=== PATIENT | female | born 1930 | race Caucasian/White ===

== ENCOUNTER 2017-06-08 11:58 | Emergency (ER) | payer MEDICARE, BC ==
--- NOTE | 2017-06-08 12:29 | ER Document Report ---
ED General - General Mode of Arrival: Ambulatory Information source: Patient, Relative - daughter TRAVEL OUTSIDE OF THE [place] IN LAST 30 DAYS: No - HPI Onset: Other - Refer to HPI Notes Associated symptoms: Other - cough, fatigue, sneezing, scratchy throat, urinary frequency <ROGERIO KAY - Last Filed: 06/08/17 13:48> <JUNIOR ABBASI - Last Filed: 06/08/17 15:01> - General Chief Complaint: Cough Stated Complaint: COUGH, CONFUSION Time Seen by Provider: 06/08/17 12:20 Notes: Patient is an 86-year-old female presenting to the emergency department with complaints of cough, fatigue and scratchy throat. Patient has a history of dementia her daughter is present to give most of the HPI and patient's history. Patient has had a cough for approximately 2-3 days along with some sneezing and scratchy throat. Patient's cough became worse last night. Patient and daughter boty deny any known fever. Patient's daughter also states the patient has had an increased amount of confusion during all parts of the day. Patient denies any dysuria or urinary symptoms however the daughter states that when they are going somewhere, the patient will use the bathroom at home and then have frequency to go again as soon as they arrive to their destination. Patient also has a history of hypertension hyperlipidemia and hypothyroidism. Patient is taking Exelon for her dementia. Patient has no known allergies. Patient's primary care physician is Dr. Hamm, in [place]. (ROGERIO KAY) - Related Data Allergies/Adverse Reactions: No Known Allergies Allergy (Unverified 11/20/13 14:09) Past Medical History - General Information source: Patient, Relative - daughter - Social History Smoking Status: Unknown if Ever Smoked Family History: None - Past Medical History Cardiac Medical History: Reports: Hx Congestive Heart Failure, Hx Hypercholesterolemia, Hx Hypertension Pulmonary Medical History: Reports: Hx Bronchitis, Hx Pneumonia Endocrine Medical History: Reports: Hx Hypothyroidism Renal/ Medical History: Denies: Hx Peritoneal Dialysis Past Surgical History: Reports: Hx Tubal Ligation - Immunizations Hx Diphtheria, Pertussis, Tetanus Vaccination: Yes - UTD <ROGERIO KAY - Last Filed: 06/08/17 13:48> Review of Systems - Review of Systems Constitutional: See HPI, Malaise. denies: Fever EENT: See HPI, Nose congestion, Nose discharge, Throat pain Cardiovascular: No symptoms reported Respiratory: See HPI, Cough Gastrointestinal: No symptoms reported Genitourinary: See HPI, Frequency Female Genitourinary: No symptoms reported Musculoskeletal: No symptoms reported Skin: No symptoms reported Hematologic/Lymphatic: No symptoms reported Neurological/Psychological: See HPI, Confusion, Dementia -: Yes All other systems reviewed and negative <ROGERIO KAY - Last Filed: 06/08/17 13:48> Physical Exam - Vital signs Interpretation: Hypertensive <ROGERIO KAY - Last Filed: 06/08/17 13:48> <JUNIOR ABBASI - Last Filed: 06/08/17 15:01> - Vital signs Vitals: Temp Pulse Resp BP Pulse Ox 97.7 F 79 20 161/56 H 98 06/08/17 12:10 06/08/17 12:10 06/08/17 12:10 06/08/17 12:10 06/08/17 12:10 - Notes Notes: GENERAL: Alert, interacts well. No acute distress. HEAD: Normocephalic, atraumatic. EYES: Appear normal. Pupils equal, round, and reactive to light. ENT: Moist mucus membranes, tongue midline, mild erythema to the oropharynx, no swelling to the oropharynx. Nares patent. Cerumen impaction bilaterally. NECK: Full range of motion. Supple. Trachea midline. LUNGS: Nonproductive cough. Rhonchi bilaterally but worse on the left side. No respiratory distress. HEART: Regular rate and rhythm. No murmurs, gallops, or rubs. ABDOMEN: Soft, non-tender. Non-distended. Normal bowel sounds. EXTREMITIES: Moves all 4 extremities spontaneously. Normal strength. No edema. NEUROLOGICAL: Normal speech. No focal neurological deficits. GSC 15. PSYCH: Normal affect, normal mood. SKIN: Warm, dry, normal turgor. No rashes or lesions noted. (ROGERIO KAY) Course - Laboratory Result Diagrams: 06/08/17 13:00 06/08/17 13:00 <ROGERIO KAY - Last Filed: 06/08/17 13:48> - Laboratory Result Diagrams: 06/08/17 13:00 06/08/17 13:00 - Diagnostic Test Radiology reviewed: Image reviewed - There is some increased markings in the right lower lobe suggestive of early infiltrate - EKG Interpretation by [place] EKG shows normal: Sinus rhythm, [place], Intervals, QRS Complexes, ST-T Waves Rate: Normal - 75 Rhythm: NSR <JUNIOR ABBASI - Last Filed: 06/08/17 15:01> - Vital Signs Vital signs: Temp Pulse Resp BP Pulse Ox 97.7 F 79 20 161/56 H 98 06/08/17 12:10 06/08/17 12:10 06/08/17 12:10 06/08/17 12:10 06/08/17 12:10 - Laboratory Laboratory results interpreted by me: 06/08/17 06/08/17 13:00 13:00 Sodium 133.3 L Urine Blood SMALL H Ur Leukocyte Esterase MODERATE H Discharge <ROGERIO KAY - Last Filed: 06/08/17 13:48> <JUNIOR ABBASI - Last Filed: 06/08/17 15:01> - Discharge Clinical Impression: Bronchitis Urinary tract infection Qualifiers: Urinary tract infection type: site unspecified Hematuria presence: without hematuria Qualified Code(s): N39.0 - Urinary tract infection, site not specified Condition: Stable Disposition: HOME, SELF-CARE Additional Instructions: Bronchitis: You have acute bronchitis. This disease is an infection or inflammation of the air passageways in your lungs. Symptoms usually include cough, low grade fever, shortness of breath, and wheezing. The cough usually persists for a couple of weeks. Most cases of bronchitis get better without antibiotics. We prescribe antibiotics when we believe bacteria are damaging your airways, or if there's high risk the bronchitis will worsen into pneumonia. Increase your fluid intake. A cool mist humidifier may make your lungs more comfortable. An expectorant (cough medicine that loosens phlegm) can help. Call the doctor if you develop increasing fever, shortness of breath, chest pain, bloody sputum, or otherwise worsen. If you have not improved at all after several days, contact the physician. Urinary Tract Infection: Your evaluation suggests that you MAY have a urinary tract infection. This is due to germs growing in the bladder. This is a common problem. This infection usually responds quickly to antibiotics. Your antibiotic should be taken exactly as prescribed. Drink plenty of fluids -- three to four quarts a day. Certain urine infections require a culture. If the doctor obtained a culture, the results will be back in two days. You should call to see if a change in treatment is needed. A repeat urinalysis after you finish treatment is often recommended. The physician will let you know if further testing is required. Call the doctor if you develop fever, chills, flank pain, inability to urinate, or blood in the urine. START THE ANTIBIOTIC PRESCRIBED TOMORROW. DRINK PLENTY OF FLUIDS. TRY ROBITUSSIN-DM FOR COUGH SUPPRESSION. FOLLOW UP WITH YOUR DOCTOR IF NOT IMPROVING. RETURN TO THE EMERGENCY ROOM IF ANY NEW OR WORSENING SYMPTOMS. Prescriptions: Levofloxacin [Levaquin 750 mg Tablet] 750 mg PO DAILY #4 tablet Referrals: CAMDEN HAMM MD [Primary Care Provider] - Follow up as needed Scribe Attestation: 06/08/17 14:59 I personally performed the services described in the documentation, reviewed and edited the documentation which was dictated to the scribe in my presence, and it accurately records my words and actions. (JUNIOR ABBASI) Scribe Documentation - Scribe Written by Livan:: Livan Segura, 06/08/2017 12:43 acting as scribe for :: Santo <ROGERIO KAY - Last Filed: 06/08/17 13:48>
[2017-06-08 13:19] LABS: VENOUS BLOOD BASE EXCESS 2.3 mmol/L; VENOUS BLOOD HCO3 28.7 mmol/L (20-32); VENOUS BLOOD PCO2 51.9 mmHg (35-63); VENOUS BLOOD PH 7.36 (7.30-7.42)
[2017-06-08 13:23] LABS: ABSOLUTE LYMPHOCYTES (AUTO) 2.4 10^3/uL (0.5-4.7); ABSOLUTE MONOCYTES (AUTO) 0.9 10^3/uL (0.1-1.4); BASOPHILS % (AUTO) 0.3 % (0-2); EOSINOPHILS % (AUTO) 0.3 % (0-6); HEMATOCRIT 40.4 % (36.0-47.0); HEMOGLOBIN 13.3 g/dL (12.0-15.5); HGB HCT DIFFERENCE -0.5; LYMPHOCYTES % (AUTO) 25.4 % (13-45); MEAN CORPUSCULAR HEMOGLOBIN 29.8 pg (27.0-33.4); MEAN CORPUSCULAR HGB CONC 32.8 g/dL (32.0-36.0); MEAN CORPUSCULAR VOLUME 91 fl (80-97); MONOCYTES % (AUTO) 9.9 % (3-13); PROTHROMBIN TIME 12.9 SEC (11.4-15.4); RED BLOOD COUNT 4.45 10^6/uL (3.72-5.28); RED CELL DISTRIBUTION WIDTH 13.8 % (11.5-14.0); SEGMENTED NEUTROPHILS % (AUTO) 64.1 % (42-78); WHITE BLOOD COUNT 9.3 10^3/uL (4.0-10.5)
[2017-06-08 13:30] LABS: APPEARANCE,URINE SLIGHTLY-CLOUDY; BILIRUBIN,URINE NEGATIVE (NEGATIVE); GLUCOSE, URINE NEGATIVE (NEGATIVE); KETONES,URINE NEGATIVE (NEGATIVE); LEUKOCYTE ESTERASE,URINE MODERATE (NEGATIVE); NITRITE,URINE NEGATIVE (NEGATIVE); PROTEIN,URINE NEGATIVE (NEGATIVE); URINE SPECIFIC GRAVITY 1.011; UROBILINOGEN,URINE NEGATIVE mg/dL (<2.0)
[2017-06-08 13:39] LABS: ALANINE AMINOTRANSFERASE 31 U/L (9-52); ALBUMIN 3.7 g/dL (3.5-5.0); ALKALINE PHOSPHATASE 90 U/L (38-126); ANION GAP 9 (5-19); ASPARTATE AMINO TRANSFERASE 30 U/L (14-36); BILIRUBIN,DIRECT 0.1 mg/dL (0.0-0.4); BILIRUBIN,TOTAL 0.6 mg/dL (0.2-1.3); BLOOD UREA NITROGEN 17 mg/dL (7-20); CALCIUM 8.9 mg/dL (8.4-10.2); CARBON DIOXIDE 25 mmol/L (22-30); CHLORIDE 99 mmol/L (98-107); CREATININE RESULT 0.71 mg/dL (0.52-1.25); GLUCOSE 93 mg/dL (75-110); POTASSIUM 4.4 mmol/L (3.6-5.0); SODIUM 133.3 mmol/L (137-145); TOTAL PROTEIN 7.2 g/dL (6.3-8.2)
[2017-06-08] MEDS ORDERED: LEVOFLOXACIN 750 MG TABLET PO ONE (14:59)
--- NOTE | 2017-06-08 15:27 | RADIOLOGY REPORT (SQ) ---
EXAM DESCRIPTION: CHEST PA/LAT COMPLETED DATE/TIME: 06/08/2017 2:52 pm REASON FOR STUDY: cough, confusion COMPARISON: October 2016 EXAM PARAMETERS: NUMBER OF VIEWS: two views TECHNIQUE: Digital Frontal and Lateral radiographic views of the chest acquired. RADIATION DOSE: NA LIMITATIONS: none FINDINGS: LUNGS AND PLEURA: Chronic appearing changes appears stable. No acute consolidations or pl eural effusions are identified. MEDIASTINUM AND HILAR STRUCTURES: No masses or contour abnormalities. HEART AND VASCULAR STRUCTURES: Heart normal size. No evidence for failure. BONES: No acute findings. HARDWARE: None in the chest. OTHER: No other significant finding. IMPRESSION: No significant interval change. No acute findings. Other findings as noted above TECHNICAL DOCUMENTATION: JOB ID: [id number] [employer]- All Rights Reserved
[2017-06-08 15:34] VITALS: BP 169/59
--- NOTE | 2017-06-08 18:02 | EKG REPORT ---
SEVERITY:- NORMAL ECG - SINUS RHYTHM : Confirmed by: Edy Leung MD 08-Jun-2017 18:02:19
== END 2017-06-08 15:17 | disposition home or self-care (01) ==
LOC: ER 11:58
DX: J40 Bronchitis, not specified as acute or chronic (principal); N39.0 Urinary tract infection, site not specified; R05 Cough; H61.23 Impacted cerumen, bilateral; R53.83 Other fatigue; R53.81 Other malaise; R07.0 Pain in throat; R09.81 Nasal congestion; R06.7 Sneezing; R35.0 Frequency of micturition; I10 Essential (primary) hypertension; F03.90 Unspecified dementia, unspecified severity, without behavioral disturbance, psychotic disturbance, mood disturbance, and anxiety; Z79.899 Other long term (current) drug therapy; R09.89 Other specified symptoms and signs involving the circulatory and respiratory systems
CPT/HCPCS: 93005; 99284; 36415; 87040; 87086; 82962; 85025; 85610; 87088; 80053; 81001; 82803; 83605; 71020; 93010; A9270

== ENCOUNTER 2019-04-09 19:06 | Emergency (ER) | payer MEDICARE, BC ==
--- NOTE | 2019-04-09 20:00 | ER Document Report ---
ED Medical Screen (RME) - General Chief Complaint: Blood Pressure Problem Stated Complaint: BLOOD PRESSURE ISSUES Time Seen by Provider: 04/09/19 19:55 Primary Care Provider: CAMDEN HAMM MD [Primary Care Provider] - Follow up as needed Mode of Arrival: Ambulatory Information source: Patient Notes: Patient presents with her nurse with complaints of elevated blood pressure. Her states that patient had some irregular heart rate at her house and is complaining of mild headache with dizziness. Patient has been compliant with taking her blood pressure medications. Patient's caregiver states that she has had problems with elevations in the blood pressure when she anticipates having family come visit. Patient's daughter will be visiting tomorrow. I have greeted and performed a rapid initial assessment of this patient. A comprehensive ED assessment and evaluation of the patient, analysis of test results and completion of the medical decision making process will be conducted by additional ED providers. TRAVEL OUTSIDE OF THE [place] IN LAST 30 DAYS: No - Related Data Allergies/Adverse Reactions: No Known Allergies Allergy (Verified 04/09/19 19:07) Past Medical History - Social History Chew tobacco use (# tins/day): No Frequency of alcohol use: None Drug Abuse: None - Past Medical History Cardiac Medical History: Reports: Hx Congestive Heart Failure, Hx Hypercholesterolemia, Hx Hypertension Pulmonary Medical History: Reports: Hx Bronchitis, Hx Pneumonia Endocrine Medical History: Reports: Hx Hypothyroidism Renal/ Medical History: Denies: Hx Peritoneal Dialysis Past Surgical History: Reports: Hx Tubal Ligation - Immunizations Hx Diphtheria, Pertussis, Tetanus Vaccination: Yes - UTD Physical Exam - Vital signs Vitals: Temp Pulse Resp BP Pulse Ox 97.8 F 80 17 210/68 H 97 04/09/19 19:15 04/09/19 19:15 04/09/19 19:15 04/09/19 19:15 04/09/19 19:15 - General General appearance: Appears well, Alert Notes: Steady gait, no chest pain, heart rate regular Course - Vital Signs Vital signs: Temp Pulse Resp BP Pulse Ox 97.8 F 80 17 210/68 H 97 04/09/19 19:15 04/09/19 19:15 04/09/19 19:15 04/09/19 19:15 04/09/19 19:15 Doctor's Discharge - Discharge Referrals: CAMDEN HAMM MD [Primary Care Provider] - Follow up as needed
--- NOTE | 2019-04-09 20:37 | RADIOLOGY REPORT (SQ) ---
EXAM DESCRIPTION: CT HEAD WITHOUT IV CONTRAST COMPLETED DATE/TME: 04/09/2019 19:57 CLINICAL HISTORY: 88 years, Female, HTN, dizzy COMPARISON: Prior study from 07/01/2016 TECHNIQUE: Noncontrast CT of the head was performed. Coronal and sagittal reformations were created. Images stored on PACS. All CT scanners at this facility use dose modulation, iterative reconstruction, and/or weight based dosing when appropriate to reduce radiation dose to as low as reasonably achievable (ALARA). [facility]: Dose Right [facility]: CareDose [facility]: Dose Right [facility]: Teradose 4D [facility]: [employer] LIMITATIONS: None. FINDINGS: Mild periventricular and patchy subcortical white matter low attenuation is noted. No acute intracranial hemorrhage, mass effect, or extra-axial fluid is seen. The ventricles and sulcal spaces are mildly enlarged. Globes and orbits show no acute abnormality. Mild opacity is noted within the left sphenoid cellule. Remaining paranasal sinuses and mastoid air cells are clear. No depressed skull fractures. IMPRESSION: No acute intracranial abnormality. Mild chronic microvascular ischemic change with generalized atrophy. TECHNICAL DOCUMENTATION: Quality ID # [id number]: Final reports with documentation of one or more dose reduction techniques (e.g., Automated exposure control, adjustment of the mA and/or kV according to patient size, use of iterative reconstruction technique) copyright 2011 [employer]- All Rights Reserved
--- NOTE | 2019-04-09 20:45 | RADIOLOGY REPORT (SQ) ---
EXAM DESCRIPTION: XR CHEST 2 VIEWS COMPLETED DATE/TME: 04/09/2019 19:57 CLINICAL HISTORY: 88 years, Female, HTN, dizzy COMPARISON: Prior study from 11/15/2016 NUMBER OF VIEWS: Two TECHNIQUE: Frontal and lateral radiograph of the chest were obtained LIMITATIONS: None. FINDINGS: Cardiac and mediastinal contours are normal in appearance. Biapical scarring is noted. Lungs are otherwise clear. No pleural effusion or pneumothorax. IMPRESSION: No acute disease. copyright 2010 [employer]- All Rights Reserved
[2019-04-09 20:47] LABS: ABSOLUTE LYMPHOCYTES (AUTO) 3.1 10^3/uL (0.5-4.7); ABSOLUTE MONOCYTES (AUTO) 0.8 10^3/uL (0.1-1.4); BASOPHILS % (AUTO) 0.3 % (0-2); EOSINOPHILS % (AUTO) 0.4 % (0-6); HEMATOCRIT 41.2 % (36.0-47.0); HEMOGLOBIN 13.9 g/dL (12.0-15.5); LYMPHOCYTES % (AUTO) 38.3 % (13-45); MEAN CORPUSCULAR HEMOGLOBIN 29.8 pg (27.0-33.4); MEAN CORPUSCULAR HGB CONC 33.7 g/dL (32.0-36.0); MEAN CORPUSCULAR VOLUME 88 fl (80-97); MONOCYTES % (AUTO) 10.6 % (3-13); PLATELET COUNT 334 10^3/uL (150-450); RED BLOOD COUNT 4.66 10^6/uL (3.72-5.28); RED CELL DISTRIBUTION WIDTH 13.5 % (11.5-14.0); SEGMENTED NEUTROPHILS % (AUTO) 50.4 % (42-78); TOTAL CELLS COUNTED % (AUTO) 100 %
[2019-04-09 21:04] LABS: APPEARANCE,URINE CLEAR; BILIRUBIN,URINE NEGATIVE (NEGATIVE); COLOR,URINE STRAW; GLUCOSE, URINE NEGATIVE (NEGATIVE); KETONES,URINE NEGATIVE (NEGATIVE); LEUKOCYTE ESTERASE,URINE NEGATIVE (NEGATIVE); NITRITE,URINE NEGATIVE (NEGATIVE); PROTEIN,URINE NEGATIVE (NEGATIVE); URINE SPECIFIC GRAVITY 1.003; UROBILINOGEN,URINE NEGATIVE mg/dL (<2.0)
[2019-04-09 21:07] LABS: ALANINE AMINOTRANSFERASE 25 U/L (9-52); ALBUMIN 3.6 g/dL (3.5-5.0); ALKALINE PHOSPHATASE 96 U/L (38-126); ANION GAP 6 (5-19); ASPARTATE AMINO TRANSFERASE 24 U/L (14-36); BILIRUBIN,DIRECT 0.3 mg/dL (0.0-0.4); BILIRUBIN,TOTAL 0.4 mg/dL (0.2-1.3); BLOOD UREA NITROGEN 13 mg/dL (7-20); CALCIUM 9.1 mg/dL (8.4-10.2); CARBON DIOXIDE 29 mmol/L (22-30); CHLORIDE 95 mmol/L (98-107); GLUCOSE 97 mg/dL (75-110); POTASSIUM 4.1 mmol/L (3.6-5.0); SODIUM 130.3 mmol/L (137-145); TOTAL PROTEIN 6.7 g/dL (6.3-8.2)
--- NOTE | 2019-04-09 22:44 | EKG REPORT ---
SEVERITY:- NORMAL ECG - SINUS RHYTHM : Confirmed by: Maya Grande MD 09-Apr-2019 22:43:22
--- NOTE | 2019-04-10 00:31 | ER Document Report ---
ED General - General Chief Complaint: Blood Pressure Problem Stated Complaint: BLOOD PRESSURE ISSUES Time Seen by Provider: 04/09/19 19:55 Primary Care Provider: CAMDEN HAMM MD [NO LOCAL MD] - Follow up as needed Mode of Arrival: Ambulatory TRAVEL OUTSIDE OF THE [place] IN LAST 30 DAYS: No - HPI Notes: Patient is a 88-year-old female with a history of dementia, hypertension, depression who presents to the emergency department with her live-in nurse with a chief complaint of elevated blood pressure. The nurse states that she is prescribed lisinopril 10 mg for a systolic greater than 160. Nurse states that this morning she took the blood pressure and gave 10 mg of lisinopril. Around 4 PM this afternoon she rechecked the blood pressure because patient complaint of dizziness and feeling tired, at that time it was also elevated so nurse gave another dose of 5 mg of lisinopril. Nurse brought patient to the emergency department because the blood pressure was still elevated. Nurse states that patient was complaining of a headache at home. The nurse also states she checked the heart rate and it felt irregular. Patient at this time is alert and oriented to herself and is aware that she is at the hospital. Nurse states that she is at her baseline mentally. At this current time patient denies headache, chest pain, shortness of breath, or dizziness. - Related Data Allergies/Adverse Reactions: No Known Allergies Allergy (Verified 04/09/19 19:07) Past Medical History - General Information source: Patient - Social History Smoking Status: Never Smoker Chew tobacco use (# tins/day): No Frequency of alcohol use: None Drug Abuse: None Family History: None Patient has suicidal ideation: No Patient has homicidal ideation: No - Past Medical History Cardiac Medical History: Reports: Hx Congestive Heart Failure, Hx Hypercholesterolemia, Hx Hypertension Pulmonary Medical History: Reports: Hx Bronchitis, Hx Pneumonia Endocrine Medical History: Reports: Hx Hypothyroidism Renal/ Medical History: Denies: Hx Peritoneal Dialysis Past Surgical History: Reports: Hx Tubal Ligation - Immunizations Hx Diphtheria, Pertussis, Tetanus Vaccination: Yes - UTD Physical Exam - Vital signs Vitals: Temp Pulse Resp BP Pulse Ox 97.8 F 80 17 210/68 H 97 04/09/19 19:15 04/09/19 19:15 04/09/19 19:15 04/09/19 19:15 04/09/19 19:15 Interpretation: Hypertensive - Notes Notes: GENERAL: Well-appearing, well-nourished and in no acute distress. HEAD: Atraumatic, normocephalic. EYES: Pupils equal round and reactive to light, extraocular movements intact, sclera anicteric, conjunctiva are normal. ENT: Moist mucous membranes. NECK: Normal range of motion, supple without lymphadenopathy or JVD. LUNGS: Breath sounds clear to auscultation bilaterally and equal. No wheezes rales or rhonchi. HEART: Regular rate and rhythm without murmurs, rubs or gallops. ABDOMEN: Soft, nontender, normoactive bowel sounds. No guarding, no rebound. No masses appreciated. EXTREMITIES: Normal range of motion, no pitting or edema. No clubbing or cyanosis. PSYCH: Normal mood, normal affect. SKIN: Warm, Dry, normal turgor, no rashes or lesions noted. Face symmetric. Tongue protrudes midline. Extraocular motions intact. Left pupil 3 mm and reactive, Right pupil are 2 mm and equally reactive. 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 Normal speech, normal gait. 5 out of 5 strength in both the distal and proximal upper and lower extremities bilaterally. Sensation is grossly intact throughout. Finger to nose testing normal. Pronator drift normal. Course - Re-evaluation Re-evalutation: 04/10/19 Upon initial evaluation patient is sitting upright on stretcher in no acute distress. Patient is alert and oriented to herself and the live in nurse states she is at her baseline. Nurse states that her daughter is visiting tomorrow from out of town and that every time she comes in to town the patient has issues with elevated blood pressure. The nurse reports that her and her daughter have some history that is upsetting to the patient although she may not express it externally. The nurse states that at times the patient is concerned about her family and daughter will take her back to [place] and patient does not want to go. Patient is pleasantly confused upon assessment. Patient denies he adache, denies chest pain, denies shortness of breath, patient does report that she is hungry and tired. Patient's sodium level somewhat low which appears to be consistent with her previous visits. 04/10/19 01:32 Upon further discussion with live-in nurse, she states that patient takes her lisinopril 10 mg twice a day and that she missed her nightly dose. Instructed nurse to go ahead and give patient her own medication as prescribed. Patient requested that live in nurse step out of the room so she can have a conversation with me. During the conversation patient states that sometimes she feels like she is being told what to do by her family and living nurse. Patient states that this makes her upset at times. Ambulated with patient to restroom, patient did have steady gait, patient did complain of feeling dizzy in her head. When asked for patient to explain the dizziness or how she felt patient states its just because "I get frustrated when people tell me what to do." 04/10/19 02:59 Patient sitting upright on stretcher, as tolerated p.o., states that she is ready to go. Patient denies headache, chest pain, dizziness, shortness of breath or any other concerns at this time. Did discuss case including lab work, radiology studies, ekg, elevated bp with Dr. Vasquez. She states that patient should continue taking her lisinopril 10 mg p.o. twice daily and to keep a blood pressure diary at home. Instructed to educate patient and caregiver if she were to remain hypertensive with symptoms to return to the emergency department. Repeat blood pressure is 185/65 and appears to be trending downward. Caregiver states that she will make a follow-up appointment Friday morning with her primary care physician for the evaluation of her elevated blood pressure. - Vital Signs Vital signs: Temp Pulse Resp BP Pulse Ox 98 F 80 19 185/65 H 98 04/10/19 03:21 04/09/19 19:15 04/10/19 03:01 04/10/19 03:01 04/10/19 03:01 - Laboratory Result Diagrams: 04/09/19 20:26 04/09/19 20:26 Laboratory results interpreted by me: 04/09/19 04/09/19 20:08 20:26 Sodium 130.3 L Chloride 95 L Urine Blood SMALL H - Diagnostic Test Radiology reviewed: Image reviewed, Reports reviewed - EKG Interpretation by Me Additional EKG results interpreted by me: 04/10/19 Patient's EKG showed a normal sinus rhythm with a heart rate of 76. Normal axis deviation. No ST elevation or ectopy. Discharge - Discharge Clinical Impression: Hypertension Qualifiers: Hypertension type: essential hypertension Qualified Code(s): I10 - Essential (primary) hypertension Condition: Stable Disposition: HOME, SELF-CARE Additional Instructions: Today you were seen in the emergency department for high blood pressure. After receiving your nightly dose of lisinopril your blood pressure has trended downward to 185/65. These continue taking your blood pressure medications as prescribed. Please keep a blood pressure diary at home and follow-up with your primary care physician on Friday for the evaluation of your blood pressure and the readings you documented over the weekend. Please return to the emergency department if you have a severe headache, chest pain, shortness of breath, palpitations, change in neurological status such as numbness or weakness or slurred speech or any other concerning signs or symptoms. High Blood Pressure When your blood pressure was taken today it was elevated. Today's reading was at discharge was 185/65. Pre-hypertension/Hypertension: The patient has been informed that they may have pre-hypertension or Hypertension based on a blood pressure reading in the emergency department. I recommend that the patient call the primary care provi pool listed on their discharge instructions or a physician of their choice this wee to arrange follow up for further evaluation of possible pre-hypertension or Hypertension. Sometimes, stress or illness causes a temporary elevation of your blood pressure. We suggest that you get your blood pressure measured three more times during the next few days to see if this is more than a temporary abnormality. If your blood pressure is greater than 150/90 on each occasion, you must have treatment. Some simple things you can do to help are: If you have blood pressure medicine but aren't using it regularly, start taking it again. Get some aerobic exercise for at least 20 minutes on a daily basis. (See your doctor before beginning a new exercise program.) Eat a low-fat diet. Lose excess weight. A void salty foods and avoid adding salt to any of the foods you eat. Avoid diet pills, decongestants, "energizing" herbs, and other medicines that elevate blood pressure. If left untreated, hypertension greatly enhances your risk for developing heart disease and strokes. Please don't ignore this problem. Referrals: CAMDEN HAMM MD [NO LOCAL MD] - Follow up as needed
[2019-04-10] MEDS ORDERED: ACETAMINOPHEN 325 MG TABLET PO ONE (01:37)
[2019-04-10 03:07] VITALS: BP 185/65
== END 2019-04-10 03:21 | disposition home or self-care (01) ==
LOC: ER 19:06
DX: I11.0 Hypertensive heart disease with heart failure (principal); I50.9 Heart failure, unspecified; F03.90 Unspecified dementia, unspecified severity, without behavioral disturbance, psychotic disturbance, mood disturbance, and anxiety; F32.9 Major depressive disorder, single episode, unspecified; Z98.51 Tubal ligation status
CPT/HCPCS: 93005; 85025; 99284; 36415; 80053; 81001; 84484; 71046; 70450; 93010; A9270

== ENCOUNTER 2020-03-29 10:53 | Inpatient (IN) | payer MEDICARE, BC ==
[2020-03-29 11:55] LABS: ABSOLUTE EOSINOPHILS # (AUTO) 0.1 10^3/uL (0.0-0.6); ABSOLUTE MONOCYTES (AUTO) 0.8 10^3/uL (0.1-1.4); ABSOLUTE NEUT (AUTO) 3.6 10^3/uL (1.7-8.2); BASOPHILS % (AUTO) 0.4 % (0-2); EOSINOPHILS % (AUTO) 0.8 % (0-6); HEMATOCRIT 38.7 % (36.0-47.0); HEMOGLOBIN 13.4 g/dL (12.0-15.5); LYMPHOCYTES % (AUTO) 40.5 % (13-45); MEAN CORPUSCULAR HEMOGLOBIN 30.9 pg (27.0-33.4); MEAN CORPUSCULAR HGB CONC 34.6 g/dL (32.0-36.0); MEAN CORPUSCULAR VOLUME 89 fl (80-97); MONOCYTES % (AUTO) 10.1 % (3-13); PLATELET COUNT 327 10^3/uL (150-450); RED BLOOD COUNT 4.34 10^6/uL (3.72-5.28); RED CELL DISTRIBUTION WIDTH 14.2 % (11.5-14.0); SEGMENTED NEUTROPHILS % (AUTO) 48.2 % (42-78); TOTAL CELLS COUNTED % (AUTO) 100 %; WHITE BLOOD COUNT 7.5 10^3/uL (4.0-10.5)
[2020-03-29 12:09] LABS: INTERNATIONAL RATION (INR) 0.98
[2020-03-29 12:16] LABS: ALBUMIN 3.5 g/dL (3.5-5.0); ALKALINE PHOSPHATASE 70 U/L (38-126); ANION GAP 11 (5-19); ASPARTATE AMINO TRANSFERASE 30 U/L (14-36); BILIRUBIN,TOTAL 0.5 mg/dL (0.2-1.3); BLOOD UREA NITROGEN 17 mg/dL (7-20); CALCIUM 8.7 mg/dL (8.4-10.2); CARBON DIOXIDE 22 mmol/L (22-30); CHLORIDE 97 mmol/L (98-107); GLUCOSE 227 mg/dL (75-110); POTASSIUM 3.8 mmol/L (3.6-5.0); TOTAL PROTEIN 6.6 g/dL (6.3-8.2)
[2020-03-29] MEDS ORDERED: NORMAL SALINE IV ONE (12:25)
--- NOTE | 2020-03-29 12:34 | ER Document Report ---
ED Dizziness/Weakness - General Chief Complaint: Altered Mental Status Stated Complaint: ALTERED MENTAL STATUS Time Seen by Provider: 03/29/20 11:29 Mode of Arrival: Medic Information source: Patient, Relative TRAVEL OUTSIDE OF THE [place] IN LAST 30 DAYS: No - HPI Notes: EMS was called by patient's sql database programmer for mild altered mental status. Patient also had some shaking today. In addition patient reportedly has not been eating. She is also had excessive intake of fluids. And she has had elevated blood pressure and blood sugar as well per her sql database programmer who is at the bedside. No known history of vomiting diarrhea or fevers. Patient symptoms have been mild to moderate. They have been intermittent. Nothing known makes them better or worse. No known radiation of any the symptoms. - Related Data Allergies/Adverse Reactions: No Known Allergies Allergy (Verified 04/09/19 19:07) Past Medical History - General Information source: Patient - Social History Smoking Status: Never Smoker Chew tobacco use (# tins/day): No Drug Abuse: None Family History: None Patient has homicidal ideation: No - Past Medical History Cardiac Medical History: Reports: Hx Congestive Heart Failure, Hx Hypercholesterolemia, Hx Hypertension Pulmonary Medical History: Reports: Hx Bronchitis, Hx Pneumonia Endocrine Medical History: Reports: Hx Hypothyroidism Renal/ Medical History: Denies: Hx Peritoneal Dialysis Past Surgical History: Reports: Hx Tubal Ligation - Immunizations Hx Diphtheria, Pertussis, Tetanus Vaccination: Yes - UTD Review of Systems - Review of Systems -: Yes ROS unobtainable due to patient's medical condition - Review of symptoms are not obtainable due to patient's chronic dementia Physical Exam - Vital signs Vitals: Temp Resp Pulse Ox 96.3 F L 18 86 L 03/29/20 11:15 03/29/20 11:15 03/29/20 11:15 Interpretation: Normal - General General appearance: Appears well, Alert - HEENT Head: Normocephalic, Atraumatic Eyes: Normal Pupils: PERRL - Respiratory Respiratory status: No respiratory distress Chest status: Nontender Breath sounds: Normal Chest palpation: Normal - Cardiovascular Rhythm: Regular Heart sounds: Normal auscultation Murmur: No - Abdominal Inspection: Normal Distension: No distension Bowel sounds: Normal Tenderness: Nontender Organomegaly: No organomegaly - Back Back: Normal, Nontender - Extremities General upper extremity: Normal inspection, Nontender, Normal color, Normal ROM, Normal temperature General lower extremity: Normal inspection, Nontender, Normal color, Normal ROM, Normal temperature, Normal weight bearing. No: Renny's sign - Neurological Cognition: Confused Orientation: Disoriented to place, Disoriented to time Abel Coma Scale Eye Opening: Spontaneous [place] Coma Scale Verbal: Confused [place] Coma Scale Motor: Obeys Commands [place] Coma Scale Total: 14 Sensory: Normal - Psychological Associated symptoms: Flat affect, Psychomotor depression - Skin Skin Temperature: Warm Skin Moisture: Dry Skin Color: Normal Course - Re-evaluation Re-evalutation: 03/29/20 13:30 Patient presents with sql database programmer with some vague complaints of shaking, decreased appetite, increased thirst and some mild mental status alterations. She is found on exam to have some hypoxia, some mild hypothermia, and an elevated lactate. The exact source of these findings is unclear at this time although occult bacteremia is a possibility. She has been covered with Rocephin. At this time a CTA is pending. At this time I have discussed the case with the hospitalist who is going to do the admission and follow-up on the CTA. - Vital Signs Vital signs: Temp Pulse Resp BP Pulse Ox 96.6 F L 16 182/64 H 100 03/29/20 11:31 03/29/20 11:31 03/29/20 11:31 03/29/20 11:31 - Laboratory Result Diagrams: 03/29/20 11:15 03/29/20 11:15 Laboratory results interpreted by me: 03/29/20 03/29/20 03/29/20 11:04 11:15 11:15 RDW 14.2 H VBG pH VBG pCO2 Sodium 130.4 L Chloride 97 L Glucose 227 H POC Glucose 173 H Lactic Acid Urine Glucose (UA) 03/29/20 03/29/20 03/29/20 11:15 11:15 12:25 RDW VBG pH 7.44 H VBG pCO2 34.0 L Sodium Chloride Glucose POC Glucose Lactic Acid 4.2 H Urine Glucose (UA) 150 H - Diagnostic Test Radiology reviewed: Image reviewed, Reports reviewed - EKG Interpretation by Me EKG shows normal: Sinus rhythm Rate: Normal - 91 Rhythm: NSR [place]/QRS: No: Right axis deviation, Left axis deviation Discharge - Discharge Clinical Impression: Elevated lactic acid level, Hypoxia Hypothermia Qualifiers: Encounter type: initial encounter Qualified Code(s): T68.XXXA - Hypothermia, initial encounter Condition: Serious Disposition: ADMITTED INPATIENT Admitting Provider: Marv (Hospitalist) Unit Admitted: Telemetry
[2020-03-29 12:35] LABS: VENOUS BLOOD BASE EXCESS -1.3 mmol/L; VENOUS BLOOD HCO3 22.3 mmol/L (20-32); VENOUS BLOOD PH 7.44 (7.30-7.42)
[2020-03-29 12:39] LABS: APPEARANCE,URINE CLEAR; BILIRUBIN,URINE NEGATIVE (NEGATIVE); COLOR,URINE STRAW; GLUCOSE, URINE 150 mg/dL (NEGATIVE); KETONES,URINE NEGATIVE (NEGATIVE); PROTEIN,URINE NEGATIVE (NEGATIVE); URINE SPECIFIC GRAVITY 1.006; UROBILINOGEN,URINE NEGATIVE mg/dL (<2.0)
[2020-03-29] MEDS ORDERED: CEFTRIAXONE INJ 1000 MG VIAL ONE (12:42)
[2020-03-29] MEDS ORDERED: CEFTRIAXONE 1 GM/D5W RTU 1 GM/50 ML RTUPB IV ONE (12:45)
--- NOTE | 2020-03-29 13:02 | RADIOLOGY REPORT (SQ) ---
EXAM DESCRIPTION: CHEST SINGLE VIEW IMAGES COMPLETED DATE/TIME: 03/29/2020 11:38 am REASON FOR STUDY: hypoxia COMPARISON: 06/08/2017 EXAM PARAMETERS: NUMBER OF VIEWS: One view. TECHNIQUE: Single frontal radiographic view of the chest acquired. RADIATION DOSE: NA LIMITATIONS: None. FINDINGS: LUNGS AND PLEURA: Lungs are hyperinflated. Biapical pleural and parenchymal scarring is s table. No focal consolidation or pleural effusion. No pneumothorax. MEDIASTINUM AND HILAR STRUCTURES: No masses. Contour normal. HEART AND VASCULAR STRUCTURES: Heart normal in size. Normal vasculature. BONES: No acute findings. HARDWARE: None in the chest. OTHER: No other significant finding. IMPRESSION: No acute cardiopulmonary disease. Hyperinflated lungs which can be seen with obstructiv e lung disease. TECHNICAL DOCUMENTATION: JOB ID: [id number] 2010 [employer]- All Rights Reserved Reading location - IP/workstation name: [email or web address]
--- NOTE | 2020-03-29 14:00 | RADIOLOGY REPORT (SQ) ---
EXAM DESCRIPTION: CTA CHEST IMAGES COMPLETED DATE/TIME: 03/29/2020 1:43 pm REASON FOR STUDY: hypoxia COMPARISON: None. TECHNIQUE: CT scan of the chest performed using helical scanning technique with dynamic intravenous contrast injection. Images reviewed with lung, soft tissue and bone windows. Reconstructed coronal and sagittal MPR images reviewed. Additional 3 dimensional post-processing performed to develop Maximal Intensity Projection images (IN P). All images stored on PACS. All CT scanners at this facility use dose modulation, iterative reconstruction, and/or weight based d osing when appropriate to reduce radiation dose to as low as reasonably achievable (ALARA). [facility]: Dose Right [facility]: CareDose [facility]: Dose Right [facility]: Teradose 4D [facility]: bright box CONTRAST TYPE AND DOSE: contrast/concentration: Isovue 350.00 mg/ml; Total Contrast Delivered: 52.0 ml; Total Saline Delivered: 70.0 ml Contrast bolus adequate for pulmonary arteries and aorta. RENAL FUNCTION: GFR > 60. RADIATION DOSE: CT Rad equipment meets quality standard of care and radiation dose reduction techniq ues were employed. CTDIvol: 9.9 - 29.8 mGy. DLP: 1035 mGy-cm. . LIMITATIONS: None. FINDINGS: LUNGS AND PLEURA: Apical scarring. No evidence of consolidation or edema. No effusions. AORTA AND GREAT VESSELS: No aneurysm. No dissection. HEART: No pericardial effusion. Cardiomegaly. PULMONARY ARTERIES: No emboli visualized in the main pulmonary arteries or the segmental branches. HILAR AND MEDIASTINAL STRUCTURES: No identified masses or abnormal nodes. HARDWARE: None in the chest. UPPER ABDOMEN: No significant findings. Limited exam. THYROID AND OTHER SOFT TISSUES: No masses. No adenopathy. BONES: No acute or significant finding. 3D MIPS: Confirm above findings. OTHER: No other significant finding. IMPRESSION: No PE. No acute findings. COMMENT: Quality ID # [id number]: Final reports with documentation of one or more dose reduction techniques (e.g., Automated exposure control, adjustment of the mA and/or kV according to patient size, use of iterative reconstruction technique) TECHNICAL DOCUMENTATION: JOB ID: [id number] 2010 [employer]- All Rights Reserved Reading location - IP/workstation name: [email or web address]
[2020-03-29] MEDS ORDERED: IPRATROPIUM/ALBUTEROL 0.5-2.5 MG/3 ML AMPUL NEB PRN (14:20)
[2020-03-29] MEDS ORDERED: ONDANSETRON 4 MG TAB.RAPDIS PO PRN (14:20)
[2020-03-29] MEDS ORDERED: ACETAMINOPHEN 325 MG TABLET PO PRN (14:20)
[2020-03-29] MEDS ORDERED: HYDRALAZINE HCL INJ/PF 20 MG/1 ML SDV IV PRN (14:32)
--- NOTE | 2020-03-29 14:45 | PDOC H&P ---
History of Present Illness Admission Date/PCP: March 29, 2020 History of Present Illness: SILVINO LEROY is a 89 year old female Patient was brought to the emergency room with complaints of altered mental status. Patient lives at home with caregivers which she has [id number]. It was noted by a caregiver today that she just did not seem to be herself. She was asking to drink water which does not normally do and she just similar confused and out of salt. Her blood pressure was noted to be high however caregiver states this is somewhat typical for her with a blood pressure pill sometimes high and sometimes below. In the emergency room patient was apparently found to be hypoxemic with oxygen saturation of 86 and elevated lactate. Temperature was 96.3. A CT was also done which is basically negative and urinalysis is negative white count is within normal by the time I saw the patient she apparently is back to her baseline mental status Past Medical History Cardiac Medical History: Reports: Congestive Heart Failure, Hyperlipidema, Hypertension Pulmonary Medical History: Reports: Bronchitis, Pneumonia Endocrine Medical History: Reports: Hypothyroidism Past Surgical History Past Surgical History: Reports: Tubal Ligation Social History Information Source: Friend Lives with: Guardian Smoking Status: Never Smoker Electronic Cigarette use?: No - Advance Directive Resuscitation Status: Do Not Resuscitate Family History Family History: None Parental Family History Reviewed: No Children Family History Reviewed: Yes Sibling(s) Family History Reviewed.: No Medication/Allergy Home Medications: Levothyroxine Sodium [Synthroid] 100 mcg PO Q6AM 11/20/13 Carboxymethylcellulose Sodium [Refresh Tears] 1 drop OS QAM 03/29/20 Fluorometholone 1 drop OD QAM 03/29/20 Lisinopril [Prinivil 10 mg Tablet] 10 mg PO DAILYP PRN 03/29/20 Lisinopril [Prinivil 5 mg Tablet] 5 mg PO DAILYP PRN 03/29/20 Multivitamin [Daily Multiple Vitamin] 1 tab PO DAILY 03/29/20 Rivastigmine Tartrate [Exelon 1.5 mg Capsule] 1.5 mg PO Q12 03/29/20 Allergies/Adverse Reactions: No Known Allergies Allergy (Verified 04/09/19 19:07) Review of Systems All systems: reviewed and no additional remarkable complaints except as stated Constitutional: ABSENT: chills, headache(s), weakness Nose, Mouth, and Throat: ABSENT: sore throat Cardiovascular: ABSENT: chest pain, dyspnea on exertion, edema Respiratory: ABSENT: cough, dyspnea, hemoptysis Gastrointestinal: ABSENT: dysphagia, hematemesis, nausea, vomiting Physical Exam Vital Signs: Temp Pulse Resp BP Pulse Ox 97.6 F 19 207/63 H 97 03/29/20 13:00 03/29/20 13:00 03/29/20 13:00 03/29/20 13:00 Intake & Output 03/28/20 03/29/20 03/30/20 06:59 06:59 06:59 Weight 67.7 kg General appearance: PRESENT: no acute distress, hard of hearing, well-developed Head exam: PRESENT: atraumatic Neck exam: PRESENT: full ROM. ABSENT: JVD, tenderness Respiratory exam: PRESENT: clear to auscultation carl, unlabored. ABSENT: rhonchi, wheezes Cardiovascular exam: PRESENT: RRR, +S1, +S2 Rectal exam: PRESENT: deferred Extremities exam: ABSENT: calf tenderness Musculoskeletal exam: PRESENT: ambulatory Neurological exam: PRESENT: alert, awake, oriented to person. ABSENT: motor sensory deficit Psychiatric exam: PRESENT: appropriate affect Results Laboratory Results: 03/29/20 11:15 03/29/20 11:15 03/29/20 03/29/20 03/29/20 11:15 11:15 11:15 WBC 7.5 RBC 4.34 Hgb 13.4 Hct 38.7 MCV 89 MCH 30.9 MCHC 34.6 RDW 14.2 H Plt Count 327 Seg Neutrophils % 48.2 VBG pH VBG pCO2 VBG HCO3 VBG Base Excess Sodium 130.4 L Potassium 3.8 Chloride 97 L Carbon Dioxide 22 Anion Gap 11 BUN 17 Creatinine 0.64 Est GFR ( Amer) > 60 Glucose 227 H Lactic Acid 4.2 H Calcium 8.7 Total Bilirubin 0.5 AST 30 Alkaline Phosphatase 70 Total Protein 6.6 Albumin 3.5 Urine Color Urine Appearance Urine pH Ur Specific [place] Urine Protein Urine Glucose (UA) Urine Ketones Urine Blood 03/29/20 03/29/20 03/29/20 11:15 11:40 12:25 WBC RBC Hgb Hct MCV MCH MCHC RDW Plt Count Seg Neutrophils % VBG pH Cancelled 7.44 H VBG pCO2 Cancelled 34.0 L VBG HCO3 Cancelled 22.3 VBG Base Excess Cancelled -1.3 Sodium Potassium Chloride Carbon Dioxide Anion Gap BUN Creatinine Est GFR ( Amer) Glucose Lactic Acid Calcium Total Bilirubin AST Alkaline Phosphatase Total Protein Albumin Urine Color STRAW Urine Appearance CLEAR Urine pH 7.0 Ur Specific [place] 1.006 Urine Protein NEGATIVE Urine Glucose (UA) 150 H Urine Ketones NEGATIVE Urine Blood NEGATIVE Impressions: Chest X-Ray 03/29/20 11:44 IMPRESSION: No acute cardiopulmonary disease. Hyperinflated lungs which can be seen with obstructive lung disease. Chest/Abdomen CTA 03/29/20 12:55 IMPRESSION: No PE. No acute findings. Assessment and Plan - Diagnosis (1) Hypertensive emergency Is this a current diagnosis for this admission?: Yes (2) Elevated lactic acid level Is this a current diagnosis for this admission?: Yes (3) Hypoxia Is this a current diagnosis for this admission?: Yes (4) Altered mental status Is this a current diagnosis for this admission?: Yes - Plan Summary Summary: Etiology of this patient's apparently transient altered mental status is unclear. She apparently is back to her baseline. Work-up so far has received the old elevated lactic acid level otherwise no other significant finding. She was hypotensive with a systolic blood pressure of more than 200. A CT scan of the brain will be ordered. No deficits at this time. Patient does have underlying dementia but according to caregiver who takes care of her she appears to be at her baseline currently. Patient will be placed on observation. Further antibiotics at this time although she did receive a dose of ceftriaxone in the ER. Will control her blood pressure hopefully much better than it is now prior to discharge - Time Time Spent with patient: 25-34 minutes Anticipated discharge: Home Within: within 24 hours
--- NOTE | 2020-03-29 15:42 | RADIOLOGY REPORT (SQ) ---
EXAM DESCRIPTION: CT HEAD WITHOUT IMAGES COMPLETED DATE/TIME: 03/29/2020 3:21 pm REASON FOR STUDY: AMS, hypertensive emergency COMPARISON: None. TECHNIQUE: Axial images acquired through the brain without intravenous contrast. Images reviewed wi th bone, brain and subdural windows. Additional sagittal and coronal reconstructions were generated. Images stored on PACS. All CT scanners at this facility use dose modulation, iterative reconstruction, and/or weight based d osing when appropriate to reduce radiation dose to as low as reasonably achievable (ALARA). [facility]: Dose Right [facility]: CareDose [facility]: Dose Right [facility]: Teradose 4D [facility]: [employer] RADIATION DOSE: CT Rad equipment meets quality standard of care and radiation dose reduction techniq ues were employed. CTDIvol: 53.2 mGy. DLP: 964 mGy-cm. mGy. LIMITATIONS: None. FINDINGS: VENTRICLES: Prominent. CEREBRUM: No masses. No hemorrhage. No midline shift. Areas of low density in the white matter mos t likely due to chronic micro-vascular ischemic change. No evidence for acute infarction. CEREBELLUM: No masses. No hemorrhage. No alteration of density. No evidence for acute infarction. EXTRAAXIAL SPACES: Mild age-related involutional change. No fluid collections. No masses. ORBITS AND GLOBE: No intra- or extraconal masses. Normal contour of globe without masses. CALVARIUM: No fracture. PARANASAL SINUSES: No fluid or mucosal thickening. SOFT TISSUES: No mass or hematoma. OTHER: No other significant finding. IMPRESSION: MILD CHRONIC CHANGES OF ATROPHY AND MICROVASCULAR ISCHEMIA. NO ACUTE PROCESS. EVIDENCE OF ACUTE STROKE: NO. TECHNICAL DOCUMENTATION: JOB ID: [id number] Quality ID # [id number]: Final reports with documentation of one or more dose reduction techniques (e.g., Au tomated exposure control, adjustment of the mA and/or kV according to patient size, use of iterative reconstruction technique) 2010 [employer]- All Rights Reserved Reading location - IP/workstation name: [email or web address]
[2020-03-29] MEDS: ENOXAPARIN SODIUM INJ 40 MG/0.4 ML DISP.SYRIN SUBCUT SCH (17:26)
[2020-03-29] MEDS: NORMAL SALINE 1000 ML 1,000 ML IV PRN (17:27)
[2020-03-29] MEDS: RIVASTIGMINE TARTRATE 1.5 MG CAPSULE PO SCH (21:47)
[2020-03-29] MEDS: LISINOPRIL 10 MG TABLET PO SCH (21:47)
--- NOTE | 2020-03-29 22:04 | EKG REPORT ---
SEVERITY:- NORMAL ECG - SINUS RHYTHM : Confirmed by: Maya Grande MD 29-Mar-2020 22:04:28
[2020-03-30] MEDS: NORMAL SALINE 1000 ML 1,000 ML IV PRN (01:50)
[2020-03-30] MEDS ORDERED: LEVOTHYROXINE SODIUM 0.05 MG TABLET PO SCH (06:00)
[2020-03-30] MEDS ORDERED: CARBOXYMETHYLCELLULOSE SOD 0.5% 0.4 ML DROPERETTE OS SCH (08:00)
[2020-03-30] MEDS ORDERED: (PENDING PHARMACY ID) (Carboxymethylcellulose Sodium [Refresh Tears] 1 DROP) OS SCH (08:00)
[2020-03-30 08:07] VITALS: BP 174/66
[2020-03-30] MEDS ORDERED: MULTIVITAMIN TABLET PO SCH (10:00)
[2020-03-30] MEDS: ENOXAPARIN SODIUM INJ 40 MG/0.4 ML DISP.SYRIN SUBCUT SCH (10:06)
[2020-03-30] MEDS: LISINOPRIL 10 MG TABLET PO SCH (10:08)
[2020-03-30] MEDS: RIVASTIGMINE TARTRATE 1.5 MG CAPSULE PO SCH (10:08)
--- NOTE | 2020-03-30 11:37 | PDOC DISCHARGE SUMMARY ---
Impression - Admit/DC Date/PCP Admission Date/Primary Care Provider: 03/29/20 14:33 Discharge Date: 03/30/20 - Discharge Diagnosis (1) Hypertensive emergency Is this a current diagnosis for this admission?: Yes (2) Elevated lactic acid level Is this a current diagnosis for this admission?: Yes (3) Hypoxia Is this a current diagnosis for this admission?: Yes (4) Altered mental status Is this a current diagnosis for this admission?: Yes (5) Hyponatremia Is this a current diagnosis for this admission?: Yes - Additional Information Resuscitation Status: Do Not Resuscitate Discharge Activity: Activity As Tolerated Referrals: JYOTI SOLORIO DO [NO LOCAL MD] - 04/03/20 10:30 am Home Medications: Levothyroxine Sodium [Synthroid] 100 mcg PO Q6AM 11/20/13 Carboxymethylcellulose Sodium [Refresh Tears] 1 drop OS QAM 03/29/20 Fluorometholone 1 drop OD QAM 03/29/20 Lisinopril [Prinivil 10 mg Tablet] 10 mg PO DAILYP PRN 03/29/20 Lisinopril [Prinivil 5 mg Tablet] 5 mg PO DAILYP PRN 03/29/20 Multivitamin [Daily Multiple Vitamin] 1 tab PO DAILY 03/29/20 Rivastigmine Tartrate [Exelon 1.5 mg Capsule] 1.5 mg PO Q12 03/29/20 History of Present Illiness History of Present Illness: SILVINO LEROY is a 89 year old female Patient was brought to the emergency room with complaints of altered mental status. Patient lives at home with caregivers which she has [id number]. It was noted by a caregiver today that she just did not seem to be herself. She was asking to drink water which does not normally do and she just similar confused and out of salt. Her blood pressure was noted to be high however caregiver states this is somewhat typical for her with a blood pressure pill sometimes high and sometimes below. In the emergency room patient was apparently found to be hypoxemic with oxygen saturation of 86 and elevated lactate. Temperature was 96.3. A CT was also done which is basically negative and urinalysis is negative white count is within normal by the time I saw the patient she apparently is back to her baseline mental status Hospital Course Hospital Course: Patient was admitted for observation and placed on medical unit. She did receive IV fluid. She was intermittently confused what appeared to be at her baseline given her age. CT scan done reveals no acute findings. There was no evidence of any acute infection. No further antibiotics were given except the initial dose in the emergency room. She has remained hemodynamically stable except for blood pressure which is still elevated but she did receive antihypertensive. I have instructed the caregiver to ensure that patient gets her antihypertensive as prescribed as apparently this was being given as needed depending on her blood pressure. Etiology of this patient's apparently transient altered mental status is unclear could possibly have been due to blood pressure that was out of control. Patient remains hemodynamically stable and appears to be close to her baseline with no further acute intervention planned patient is been discharged home for outpatient follow-up Physical Exam Vital Signs: Temp Pulse Resp BP Pulse Ox 98.3 F 105 H 20 174/66 H 98 03/30/20 11:07 03/30/20 11:07 03/30/20 11:07 03/30/20 07:21 03/30/20 11:07 Intake & Output 03/29/20 03/30/20 03/31/20 06:59 06:59 06:59 Intake Total 2859 Output Total 4200 Balance -1341 Weight 69.8 kg General appearance: PRESENT: no acute distress, well-developed, well-nourished Head exam: PRESENT: atraumatic, normocephalic Eye exam: PRESENT: conjunctiva pink, EOMI. ABSENT: scleral icterus Mouth exam: PRESENT: moist, tongue midline Neck exam: ABSENT: carotid bruit, JVD, lymphadenopathy, thyromegaly Respiratory exam: PRESENT: clear to auscultation carl. ABSENT: rales, rhonchi, wheezes Cardiovascular exam: PRESENT: RRR, +S1, +S2. ABSENT: diastolic murmur, rubs, systolic murmur Vascular exam: PRESENT: normal capillary refill GI/Abdominal exam: PRESENT: normal bowel sounds, soft. ABSENT: distended, guarding, mass, organolmegaly, rebound, tenderness Rectal exam: PRESENT: deferred Extremities exam: PRESENT: full ROM. ABSENT: calf tenderness, clubbing, pedal edema Neurological exam: PRESENT: alert, awake, CN II-XII grossly intact, other - confused. ABSENT: motor sensory deficit Psychiatric exam: PRESENT: appropriate affect. ABSENT: homicidal ideation, suicidal ideation Skin exam: PRESENT: dry, intact, warm, other - Rosacea on face. ABSENT: cyanosis, rash Results Laboratory Results: WBC 7.5 10^3/uL (4.0-10.5) 03/29/20 11:15 RBC 4.34 10^6/uL (3.72-5.28) 03/29/20 11:15 Hgb 13.4 g/dL (12.0-15.5) 03/29/20 11:15 Hct 38.7 % (36.0-47.0) 03/29/20 11:15 MCV 89 fl (80-97) 03/29/20 11:15 MCH 30.9 pg (27.0-33.4) 03/29/20 11:15 MCHC 34.6 g/dL (32.0-36.0) 03/29/20 11:15 RDW 14.2 % (11.5-14.0) H 03/29/20 11:15 Plt Count 327 10^3/uL (150-450) 03/29/20 11:15 Lymph % (Auto) 40.5 % (13-45) 03/29/20 11:15 [place] % (Auto) 10.1 % (3-13) 03/29/20 11:15 Eos % (Auto) 0.8 % (0-6) 03/29/20 11:15 Baso % (Auto) 0.4 % (0-2) 03/29/20 11:15 Absolute Neuts (auto) 3.6 10^3/uL (1.7-8.2) 03/29/20 11:15 Absolute Lymphs (auto) 3.0 10^3/uL (0.5-4.7) 03/29/20 11:15 Absolute Monos (auto) 0.8 10^3/uL (0.1-1.4) 03/29/20 11:15 Absolute Eos (auto) 0.1 10^3/uL (0.0-0.6) 03/29/20 11:15 Absolute Basos (auto) 0.0 10^3/uL (0.0-0.2) 03/29/20 11:15 Seg Neutrophils % 48.2 % (42-78) 03/29/20 11:15 PT 13.0 SEC (11.4-15.4) 03/29/20 11:15 INR 0.98 03/29/20 11:15 VBG pH 7.44 (7.30-7.42) H 03/29/20 12:25 VBG pCO2 34.0 mmHg (35-63) L 03/29/20 12:25 VBG HCO3 22.3 mmol/L (20-32) 03/29/20 12:25 VBG Base Excess -1.3 mmol/L 03/29/20 12:25 Sodium 130.4 mmol/L (137-145) L 03/29/20 11:15 Potassium 3.8 mmol/L (3.6-5.0) 03/29/20 11:15 Chloride 97 mmol/L (98-107) L 03/29/20 11:15 Carbon Dioxide 22 mmol/L (22-30) 03/29/20 11:15 Anion Gap 11 (5-19) 03/29/20 11:15 BUN 17 mg/dL (7-20) 03/29/20 11:15 Creatinine 0.64 mg/dL (0.52-1.25) 03/29/20 11:15 Est GFR ( Amer) > 60 (>60) 03/29/20 11:15 Est GFR (MDRD) Non-Af > 60 (>60) 03/29/20 11:15 Glucose 227 mg/dL (75-110) H 03/29/20 11:15 POC Glucose 89 mg/dL (70-110) 03/29/20 17:17 Lactic Acid 0.8 mmol/L (0.7-2.1) 03/29/20 17:55 Calcium 8.7 mg/dL (8.4-10.2) 03/29/20 11:15 Total Bilirubin 0.5 mg/dL (0.2-1.3) 03/29/20 11:15 Direct Bilirubin 0.0 mg/dL (0.0-0.4) 03/29/20 11:15 Neonat Total Bilirubin Not Reportable 03/29/20 11:15 Neonat Direct Bilirubin Not Reportable 03/29/20 11:15 Neonat Indirect Bili Not Reportable 03/29/20 11:15 AST 30 U/L (14-36) 03/29/20 11:15 ALT 16 U/L (<35) 03/29/20 11:15 Alkaline Phosphatase 70 U/L (38-126) 03/29/20 11:15 Total Protein 6.6 g/dL (6.3-8.2) 03/29/20 11:15 Albumin 3.5 g/dL (3.5-5.0) 03/29/20 11:15 TSH 4.13 uIU/mL (0.47-4.68) 03/29/20 14:38 Urine Color STRAW 03/29/20 11:15 Urine Appearance CLEAR 03/29/20 11:15 Urine pH 7.0 (5.0-9.0) 03/29/20 11:15 Ur Specific [place] 1.006 03/29/20 11:15 Urine Protein NEGATIVE mg/dL (NEGATIVE) 03/29/20 11:15 Urine Glucose (UA) 150 mg/dL (NEGATIVE) H 03/29/20 11:15 Urine Ketones NEGATIVE mg/dL (NEGATIVE) 03/29/20 11:15 Urine Blood NEGATIVE (NEGATIVE) 03/29/20 11:15 Urine Nitrite (Reflex) NEGATIVE (NEGATIVE) 03/29/20 11:15 Urine Bilirubin NEGATIVE (NEGATIVE) 03/29/20 11:15 Urine Urobilinogen NEGATIVE mg/dL (<2.0) 03/29/20 11:15 Leukocyte Esterase Rfl NEGATIVE (NEGATIVE) 03/29/20 11:15 Urine Ascorbic Acid NEGATIVE (NEGATIVE) 03/29/20 11:15 Impressions: Head CT 03/29/20 00:00 IMPRESSION: MILD CHRONIC CHANGES OF ATROPHY AND MICROVASCULAR ISCHEMIA. NO ACUTE PROCESS. EVIDENCE OF ACUTE STROKE: NO. Chest X-Ray 03/29/20 11:44 IMPRESSION: No acute cardiopulmonary disease. Hyperinflated lungs which can be seen with obstructive lung disease. Chest/Abdomen CTA 03/29/20 12:55 IMPRESSION: No PE. No acute findings. Plan Time Spent: Less than 30 Minutes Stroke Is this a Stroke Patient?: No Acute Heart Failure - Is this a Heart Failure Patient?: No
== END 2020-03-30 12:47 | disposition home or self-care (01) | DRG 305 ==
LOC: ER 10:53 → EH 14:33 → 4N 20:44
PROVIDERS: ADMIT Internal Medicine; ATTEND Internal Medicine
DX: I16.1 Hypertensive emergency (principal); E87.1 Hypo-osmolality and hyponatremia; I50.9 Heart failure, unspecified; I11.0 Hypertensive heart disease with heart failure; E78.00 Pure hypercholesterolemia, unspecified; E03.9 Hypothyroidism, unspecified; R41.82 Altered mental status, unspecified; R09.02 Hypoxemia; R74.0 Nonspecific elevation of levels of transaminase and lactic acid dehydrogenase [LDH]
CPT/HCPCS: 36415; 70450; 71045; 71275; 80053; 81001; 82803; 82962; 83605; 84443; 85025; 85610; 87040; 93005; 93010; 96361; 96365; 99285; J0360; J0696; J1650; J3490; J7030

== ENCOUNTER 2020-10-18 14:13 | Emergency (ER) | payer MEDICARE, BC ==
[2020-10-18 14:35] VITALS: BP 123/47
--- NOTE | 2020-10-18 15:33 | ER Document Report ---
ED Medical Screen (RME) - General Stated Complaint: VOMITING BLOATING Time Seen by Provider: 10/18/20 15:22 Mode of Arrival: Wheelchair Information source: Patient Notes: 89-year-old female patient presenting to the emergency department in the company of her home health nurse complaining of vomiting twice today and increased belching over the last few months. Patient has dementia, she denies any complaints. Abdomen soft, nontender. I have greeted and performed a rapid initial assessment of this patient. A comprehensive ED assessment and evaluation of the patient, analysis of test results and completion of the medical decision making process will be conducted by additional ED providers. I have specifically instructed the patient or family members with the patient to immediately return to any nursing staff should anything change in the patient's condition or with their chief complaint. TRAVEL OUTSIDE OF THE [place] IN LAST 30 DAYS: No - Related Data Allergies/Adverse Reactions: No Known Allergies Allergy (Verified 10/18/20 15:21) Past Medical History - Past Medical History Cardiac Medical History: Reports: Hx Congestive Heart Failure, Hx Hypercholesterolemia, Hx Hypertension Pulmonary Medical History: Reports: Hx Bronchitis, Hx Pneumonia Endocrine Medical History: Reports: Hx Hypothyroidism Renal/ Medical History: Denies: Hx Peritoneal Dialysis Psychiatric Medical History: Reports: Hx Depression Past Surgical History: Reports: Hx Tubal Ligation - Immunizations Hx Diphtheria, Pertussis, Tetanus Vaccination: Yes - UTD Physical Exam - Vital signs Vitals: Temp Pulse Resp BP Pulse Ox 97.9 F 98 20 123/47 L 95 10/18/20 14:34 10/18/20 14:34 10/18/20 14:34 10/18/20 14:34 10/18/20 14:34 Course - Vital Signs Vital signs: Temp Pulse Resp BP Pulse Ox 97.9 F 98 20 123/47 L 95 10/18/20 14:34 10/18/20 14:34 10/18/20 14:34 10/18/20 14:34 10/18/20 14:34
[2020-10-18 16:29] LABS: ABSOLUTE EOSINOPHILS # (AUTO) 0.1 10^3/uL (0.0-0.6); ABSOLUTE LYMPHOCYTES (AUTO) 4.1 10^3/uL (0.5-4.7); ABSOLUTE MONOCYTES (AUTO) 0.7 10^3/uL (0.1-1.4); ABSOLUTE NEUT (AUTO) 5.4 10^3/uL (1.7-8.2); BASOPHILS % (AUTO) 0.5 % (0-2); EOSINOPHILS % (AUTO) 0.5 % (0-6); HEMATOCRIT 40.7 % (36.0-47.0); HEMOGLOBIN 14.1 g/dL (12.0-15.5); LYMPHOCYTES % (AUTO) 39.5 % (13-45); MEAN CORPUSCULAR HEMOGLOBIN 29.5 pg (27.0-33.4); MEAN CORPUSCULAR HGB CONC 34.7 g/dL (32.0-36.0); MEAN CORPUSCULAR VOLUME 85 fl (80-97); MONOCYTES % (AUTO) 7.1 % (3-13); PLATELET COUNT 403 10^3/uL (150-450); RED BLOOD COUNT 4.79 10^6/uL (3.72-5.28); SEGMENTED NEUTROPHILS % (AUTO) 52.4 % (42-78); TOTAL CELLS COUNTED % (AUTO) 100 %; WHITE BLOOD COUNT 10.3 10^3/uL (4.0-10.5)
--- NOTE | 2020-10-18 16:37 | RADIOLOGY REPORT (SQ) ---
EXAM DESCRIPTION: ACUTE ABDOMEN SERIES IMAGES COMPLETED DATE/TIME: 10/18/2020 4:01 pm REASON FOR STUDY: vomiting, excessive gas COMPARISON: None. NUMBER OF VIEWS: Three views. TECHNIQUE: Frontal chest, supine abdomen and upright/decubitus abdomen radiographic images acquired. LIMITATIONS: None. FINDINGS: CHEST: Lungs clear of infiltrates. FREE AIR: None. No abnormal gas collections. BOWEL GAS PATTERN: Nonobstructive pattern. No dilated loops or air fluid levels. CALCIFICATIONS: No suspicious calcifications. HARDWARE: None in the abdomen. SOFT TISSUES: No gross mass or suggestion of organomegaly. BONES: No acute fracture. No worrisome bone lesions. OTHER: No other significant finding. IMPRESSION: NO RADIOGRAPHIC EVIDENCE FOR ACUTE ABDOMINAL DISEASE. TECHNICAL DOCUMENTATION: JOB ID: [id number] 2010 [employer]- All Rights Reserved Reading location - IP/workstation name: [email or web address]
[2020-10-18 16:43] LABS: ALBUMIN 3.6 g/dL (3.5-5.0); ALKALINE PHOSPHATASE 104 U/L (38-126); ANION GAP 7 (5-19); ASPARTATE AMINO TRANSFERASE 24 U/L (14-36); BILIRUBIN,DIRECT 0.1 mg/dL (0.0-0.4); BILIRUBIN,TOTAL 0.5 mg/dL (0.2-1.3); BLOOD UREA NITROGEN 17 mg/dL (7-20); CALCIUM 9.2 mg/dL (8.4-10.2); CARBON DIOXIDE 26 mmol/L (22-30); CHLORIDE 98 mmol/L (98-107); GLUCOSE 115 mg/dL (75-110); POTASSIUM 5.1 mmol/L (3.6-5.0); TOTAL PROTEIN 6.9 g/dL (6.3-8.2)
--- NOTE | 2020-10-18 17:56 | ER Document Report ---
ED General - General Chief Complaint: Vomiting Stated Complaint: VOMITING BLOATING Time Seen by Provider: 10/18/20 15:22 Mode of Arrival: Wheelchair TRAVEL OUTSIDE OF THE [place] IN LAST 30 DAYS: No - HPI Notes: 89-year-old female presents following 2 episodes of vomiting today along with excessive burping/farting. Patient's personal lines appraiser provides the information. She states that she has noticed for the past 3 weeks patient has had increased gas, she frequently burps and farts, seems to be worse after eating meals. Attempted to see primary care doctor for this, however found out that the PCP left the practice. Also reports that she has had 2 episodes of vomiting today. Fay ent's personal lines appraiser states that between 10:11 AM she had a tiny amount of vomit described as mucus. This occurred again around 2 PM, again a tiny amount. Patient has tolerated p.o. throughout the day, does not complain of abdominal pain, no diarrhea. Patient currently denies complaints other than being hungry. - Related Data Allergies/Adverse Reactions: No Known Allergies Allergy (Verified 10/18/20 15:21) Past Medical History - General Information source: Patient - Social History Smoking Status: Never Smoker Family History: None - Past Medical History Cardiac Medical History: Reports: Hx Congestive Heart Failure, Hx Hypercholesterolemia, Hx Hypertension Pulmonary Medical History: Reports: Hx Bronchitis, Hx Pneumonia Endocrine Medical History: Reports: Hx Hypothyroidism Renal/ Medical History: Denies: Hx Peritoneal Dialysis Psychiatric Medical History: Reports: Hx Depression Past Surgical History: Reports: Hx Tubal Ligation - Immunizations Hx Diphtheria, Pertussis, Tetanus Vaccination: Yes - UTD Hx Pneumococcal Vaccination: 12/01/18 Review of Systems - Review of Systems Constitutional: No symptoms reported EENT: No symptoms reported Cardiovascular: No symptoms reported Respiratory: denies: Cough Gastrointestinal: denies: Abdominal pain, Diarrhea, Poor appetite, Poor fluid intake Genitourinary: No symptoms reported Female Genitourinary: No symptoms reported Musculoskeletal: No symptoms reported Skin: No symptoms reported Hematologic/Lymphatic: No symptoms reported Neurological/Psychological: No symptoms reported Physical Exam - Vital signs Vitals: Temp Pulse Resp BP Pulse Ox 97.9 F 98 20 123/47 L 95 10/18/20 14:34 10/18/20 14:34 10/18/20 14:34 10/18/20 14:34 10/18/20 14:34 - General General appearance: Appears well, Alert In distress: None - HEENT Head: Normocephalic, Atraumatic Extraocular movements intact: Yes Pupils: PERRL - Respiratory Breath sounds: Normal - Cardiovascular Rhythm: Regular Heart sounds: Normal auscultation - Abdominal Distension: No distension Bowel sounds: Normal Tenderness: Nontender - Extremities General upper extremity: Normal ROM General lower extremity: Normal ROM - Neurological Neuro grossly intact: Yes Notes: Speech is clear, face is symmetric, moves all extremities freely - Psychological Notes: Pleasantly demented - Skin Skin Temperature: Warm Course - Re-evaluation Re-evalutation: 89-year-old female here after 2 episodes of emesis described as a tiny bit of mucus, has otherwise tolerated p.o. Has additionally had extensive belching and flatulence for the past 3 weeks. On exam patient is pleasantly demented, hemodynamically stable, abdomen is soft and without focal areas of tenderness. Apparently patient has complained before having acid reflux. Laboratory evaluation done through triage was without marked abnormalities. She had an acute abdominal series performed which had no abnormal gas pattern. Discussed that potentially her symptoms could be related to reflux versus general slowing of her digestive system, given her exam/labs/appearance would have a low concern for acute intra-abdominal pathology at this time. Recommended to use Pepcid and simethicone, she was given doses of these in the emergency department. Return precautions given, stable at time of discharge. - Vital Signs Vital signs: Temp Pulse Resp BP Pulse Ox 97.9 F 98 20 123/47 L 95 10/18/20 14:34 10/18/20 14:34 10/18/20 14:34 10/18/20 14:34 10/18/20 14:34 - Laboratory Result Diagrams: 10/18/20 16:00 10/18/20 16:00 Laboratory results interpreted by me: 10/18/20 16:00 Sodium 131.1 L Potassium 5.1 H Glucose 115 H - Diagnostic Test Radiology reviewed: Image reviewed, Reports reviewed Discharge - Discharge Clinical Impression: Belching Disposition: HOME, SELF-CARE Additional Instructions: You may use Pepcid and simethicone for symptoms. Please try to establish with a new primary care doctor peer return to the emergency department for any concerning worsening symptoms.
[2020-10-18] MEDS ORDERED: SIMETHICONE 80 MG TAB.CHEW PO ONE (18:28)
[2020-10-18] MEDS ORDERED: FAMOTIDINE 20 MG TABLET PO ONE (18:28)
== END 2020-10-18 18:55 | disposition home or self-care (01) ==
LOC: ER 14:13
DX: R14.2 Eructation (principal); R11.10 Vomiting, unspecified; I11.0 Hypertensive heart disease with heart failure; I50.9 Heart failure, unspecified; E78.00 Pure hypercholesterolemia, unspecified; Z98.51 Tubal ligation status
CPT/HCPCS: 99285; 36415; 83690; 85025; 80053; 74022; A9270 ×2